=== PATIENT | female | born 1965 | race Caucasian/White ===

== ENCOUNTER → 2017-08-09 | Outpatient (CLI) | payer MEDICARE, MEDICAID ==
[~2017-08-09] MED LIST: ASPIRIN325 M1 PO; BACTRIM DS 8001 TAB PO; CIPRO 250MG TA250 MG PO; CIPRO 500MG TA500 MG PO; CITALOPRAM HYDR20 MG PO; CLINDAMYCIN HC300 MG PO; CYCLOBENZAPRINE10 M1 OR; DULCOLAX10 MG PR; FAMOTIDINE 20MG20 MG PO; GABAPENTIN300 M1 PO; HYDROCODONE1 TABLET PO; IBUPROFEN600 MG PO; LEVOTHYROXIN0.025 M1 PO; LIDOCAINE 2% EX; LISINOPRIL 10MG10 MG PO; LORTAB 500 MG-11 TAB PO; NOVOLIN 70/30 PE3 ML SC; NOVOLOG MIX 70/10 M1 SC; PERCOCET 10 MG1 EACH; PHENERGAN 25MG.25 M1 PO; PHENERGAN 25MG.25 MG PR; PLAVIX 75MG TAB75 MG PO; PRAVACHOL20 MG PO; ROZEREM8 MG PO; SINGULAIR10 MG PO; XANAX1 MG PO; XANAX2 MG PO; ZOFRAN4 MG PO; [UNRECOGNIZED DRUG - OTHER] EX
--- NOTE | 2017-08-09 16:19 | RADIOLOGY REPORT PS360 ---
[id number] HISTORY: CHRONIC KIDNEY DISEASE,HYPERTENSION. ORDERING PHYSICIAN: KAREN NOEL PATIENT AGE: 52 years COMPARISON: None FINDINGS: RIGHT KIDNEY:8.5 x 4.6 x 6.2 cm. There is mild thinning of the renal cortex. No hydronephrosis. There is a 2 small cyst in the upper pole less than 1 cm. LEFT KIDNEY:10 x 4 x 6 cm. No hydronephrosis. Mild cortical thinning. No renal mass. 1 cm cyst in the lower pole. OTHER FINDINGS: No other pertinent findings IMPRESSION: 1. No hydronephrosis. 2. Mild bilateral renal cortical thinning with small bilateral renal cysts
== END ==
LOC: RAD 14:12
DX: N18.3 Chronic kidney disease, stage 3 (moderate) (principal); I10 Essential (primary) hypertension